=== PATIENT | male | born 1950 ===

== ENCOUNTER 2020-11-22 11:31 | Outpatient (CLI) | payer OTHER | END 2020-11-22 11:34 | disposition home or self-care (01) | LOC: LAB 11:31 | PROVIDERS: ATTEND Radiology Diagnostic Radiology | DX: N20.0 Calculus of kidney (principal) ==

== ENCOUNTER 2020-11-23 07:09 | Outpatient (CLI) | payer OTHER | END 2020-11-23 07:22 | disposition home or self-care (01) | LOC: TOM 07:09 | PROVIDERS: ATTEND Urology | DX: N13.39 Other hydronephrosis (principal); N20.0 Calculus of kidney ==

== ENCOUNTER → 2020-11-25 | Outpatient (CLI) | payer OTHER | END | disposition home or self-care (01) | LOC: RAD 07:13 | PROVIDERS: ATTEND Urology | DX: N20.0 Calculus of kidney (principal); N28.89 Other specified disorders of kidney and ureter ==

== ENCOUNTER 2020-12-01 07:34 | Outpatient (CLI) | payer OTHER | END 2020-12-01 07:42 | disposition home or self-care (01) | LOC: RAD 07:34 | PROVIDERS: ATTEND Urology | DX: N20.1 Calculus of ureter (principal); I87.8 Other specified disorders of veins ==

== ENCOUNTER → 2020-12-14 | Outpatient (CLI) | payer OTHER | END | disposition home or self-care (01) | LOC: RAD 07:45 | PROVIDERS: ATTEND Urology | DX: I87.8 Other specified disorders of veins (principal); N20.1 Calculus of ureter ==

== ENCOUNTER 2020-12-20 07:27 | Outpatient (CLI) | payer OTHER | END 2020-12-20 07:34 | disposition home or self-care (01) | LOC: SONOGRAMA 07:27 | PROVIDERS: ATTEND Urology | DX: N20.0 Calculus of kidney (principal); N20.1 Calculus of ureter ==

== ENCOUNTER 2020-12-23 07:27 | Outpatient (CLI) | payer OTHER | END 2020-12-23 07:29 | disposition home or self-care (01) | LOC: TOM 07:27 | PROVIDERS: ATTEND Urology | DX: N20.1 Calculus of ureter (principal); R31.0 Gross hematuria ==

== ENCOUNTER 2021-02-15 07:29 | Outpatient (CLI) | payer OTHER | END 2021-02-15 07:36 | disposition home or self-care (01) | LOC: MRI 07:29 | PROVIDERS: ATTEND Physical Medicine & Rehabilitation | DX: M54.17 Radiculopathy, lumbosacral region (principal); M51.37 Other intervertebral disc degeneration, lumbosacral region; M47.817 Spondylosis without myelopathy or radiculopathy, lumbosacral region; M16.0 Bilateral primary osteoarthritis of hip | CPT/HCPCS: 72148 ==

== ENCOUNTER 2021-08-15 07:10 | Outpatient (CLI) | payer OTHER | END 2021-08-15 07:12 | disposition home or self-care (01) | LOC: TOM 07:10 | PROVIDERS: ATTEND Internal Medicine Cardiovascular Disease | DX: K57.30 Diverticulosis of large intestine without perforation or abscess without bleeding (principal); N40.0 Benign prostatic hyperplasia without lower urinary tract symptoms ==